=== PATIENT | male | born 1995 | race Asian ===

== ENCOUNTER 2016-08-28 22:38 | Emergency (ER) | payer OTHER, SELFPAY ==
[~2016-08-28] VITALS: Ht 162.6 cm; Wt 77.1 kg
[2016-08-28] MEDS ORDERED: SUMA25TA3 PO (22:53)
[2016-08-28] MEDS ORDERED: NAPR250T2 PO (22:53)
[2016-08-29 01:38] VITALS: BP 118/70
--- NOTE | 2016-08-29 08:12 | REP ---
PA and lateral chest: There are no comparisons. The lung baldwin are clear. The cardiac size is normal The tammi, mediastinum, and bony thorax are unremarkable. Impression: Negative PA and lateral chest. Signed by Richard Parmar MD 08/29/2016 08:03 A
== END 2016-08-29 01:40 | disposition home or self-care (01) ==
LOC: M ED 23:32
DX: J06.9 Acute upper respiratory infection, unspecified (principal)